=== PATIENT | female | born 1965 | race Caucasian/White ===

== ENCOUNTER 2024-02-08 13:54 | Emergency (ER) | payer MEDICAID ==
[~2024-02-08] VITALS: Ht 162.6 cm; Wt 62.5 kg
[2024-02-08 13:55] VITALS: O2SAT 98
[2024-02-08] MEDS ORDERED: IBUP-2029 MT (14:27)
[2024-02-08] MEDS ORDERED: AMOX-494 MT (14:27)
[2024-02-08] MEDS: IBUPROFEN 600MG TABLET PO ONE (14:35)
[2024-02-08 14:39] VITALS: BP 154/71; PULSE 75; RESP 18; TEMP 36.61404; O2SAT 98
== END 2024-02-08 14:46 | disposition home or self-care (01) ==
LOC: ER 13:54
DX: K04.7 Periapical abscess without sinus (principal)
CPT/HCPCS: 99283